=== PATIENT | female | born 1950 | race Two or more races ===

== ENCOUNTER 2019-02-13 15:41 | Emergency (ER) | payer OTHER ==
[~2019-02-13] VITALS: Ht 172.7 cm; Wt 81.2 kg
[~2019-02-13 15:41] MED LIST: AMOX1TAB12 PO; AVALIDE 300-251 TAB PO; DOXAZOSIN 8 MG PO; HumaLOG 100 UNIT/1 ML (3ML) SUBCUTANEO; INTESTINEX1 CA1 PO; LANTUS100 U/ML SQ; LOSARTAN-HCTZ1 EAC1; Lantus 1000 U/10 ML SUBCUTANEO; LoPRESSOR 100MG TAB PO; METOPROLOL SUC100 MG; NOVOLIN N100 U/ML SQ; NOVOLOG100 UNIT/1; PLAVIX 75MG PO; PLAVIX75 MG PO; PLETAL50 MG; PROTONIX40 MG PO; Pletal PO; ZOCOR5 MG; ZoCOR 40MG TABLET PO; [UNRECOGNIZED DRUG - OTHER] PO
[2019-02-13] MEDS ORDERED: NORVASC5 MG PO (16:14)
[2019-02-14] MEDS ORDERED: ULTRACET PO (02:35)
== END 2019-02-14 03:12 | disposition home or self-care (01) ==
LOC: ER 15:41
DX: R10.32 Left lower quadrant pain (principal)

== ENCOUNTER 2020-08-13 14:21 | Emergency (ER) | payer OTHER ==
[~2020-08-13] VITALS: Ht 172.7 cm; Wt 92.1 kg
[~2020-08-13 14:21] MED LIST changes: +NORVASC5 MG PO; +ULTRACET PO
== END 2020-08-13 20:24 | disposition home or self-care (01) ==
LOC: ER 14:21
DX: R55 Syncope and collapse (principal); Z20.828 Contact with and (suspected) exposure to other viral communicable diseases

== ENCOUNTER 2021-01-09 20:05 | Inpatient (IN) | payer OTHER ==
[~2021-01-09] VITALS: Ht 167.6 cm; Wt 86.2 kg
[2021-01-11] MEDS ORDERED: DOXAZOSIN MESYLA2 MG (07:58)
[2021-01-11] MEDS ORDERED: REFRESH OPTIVE1 EAC2 (07:58)
[2021-01-11] MEDS ORDERED: FENOFIBRATE160 MG (07:58)
[2021-01-11] MEDS ORDERED: GABAPENTIN300 M2 (07:58)
[2021-01-11] MEDS ORDERED: REFRESH OPTIVE10 M1 (07:58)
[2021-01-11] MEDS ORDERED: IRBESARTAN-HCT1 EAC1 (07:59)
[2021-01-11] MEDS ORDERED: JANUVIA50 MG (07:59)
[2021-01-11] MEDS ORDERED: METOPROLOL SUCC50 MG (07:59)
[2021-01-11] MEDS ORDERED: ROSUVASTATIN CA40 MG (07:59)
== END 2021-01-29 20:54 | DRG 872 ==
LOC: ER 20:05 → ICU-2 01-10 11:15 → ICU 01-11 21:23 → SURH 01-13 21:56
PROVIDERS: ADMIT Specialist; ATTEND Specialist
PROC: 02HV33Z Insertion of Infusion Device into Superior Vena Cava, Percutaneous Approach (ICD-10-PCS; 2021-01-13)
PROC: 4A12X4Z Monitoring of Cardiac Electrical Activity, External Approach (ICD-10-PCS; 2021-01-13)
PROC: 30233N1 Transfusion of Nonautologous Red Blood Cells into Peripheral Vein, Percutaneous Approach (ICD-10-PCS; principal; 2021-01-20)
DX: A41.9 Sepsis, unspecified organism (principal); N39.0 Urinary tract infection, site not specified; I67.4 Hypertensive encephalopathy; I69.354 Hemiplegia and hemiparesis following cerebral infarction affecting left non-dominant side; M86.8X6 Other osteomyelitis, lower leg; I10 Essential (primary) hypertension; E86.0 Dehydration; Z79.01 Long term (current) use of anticoagulants; E11.65 Type 2 diabetes mellitus with hyperglycemia; E11.40 Type 2 diabetes mellitus with diabetic neuropathy, unspecified; Z20.822 Contact with and (suspected) exposure to COVID-19; E11.621 Type 2 diabetes mellitus with foot ulcer; L97.529 Non-pressure chronic ulcer of other part of left foot with unspecified severity; K59.00 Constipation, unspecified; L89.152 Pressure ulcer of sacral region, stage 2; I80.8 Phlebitis and thrombophlebitis of other sites; I16.0 Hypertensive urgency; D50.9 Iron deficiency anemia, unspecified; E11.69 Type 2 diabetes mellitus with other specified complication
CPT/HCPCS: 70544

== ENCOUNTER 2021-08-19 16:00 | Emergency (ER) | payer OTHER ==
[~2021-08-19] VITALS: Ht 165.1 cm; Wt 81.6 kg
[~2021-08-19 16:00] MED LIST changes: +DOXAZOSIN MESYLA2 MG; +FENOFIBRATE160 MG; +GABAPENTIN300 M2; +IRBESARTAN-HCT1 EAC1; +JANUVIA50 MG; +METOPROLOL SUCC50 MG; +REFRESH OPTIVE1 EAC2; +REFRESH OPTIVE10 M1; +ROSUVASTATIN CA40 MG
== END 2021-08-20 03:09 | disposition home or self-care (01) ==
LOC: ER 16:00
DX: R05.9 Cough, unspecified (principal); E11.65 Type 2 diabetes mellitus with hyperglycemia; N39.0 Urinary tract infection, site not specified; B96.1 Klebsiella pneumoniae [K. pneumoniae] as the cause of diseases classified elsewhere; Z03.818 Encounter for observation for suspected exposure to other biological agents ruled out; Z79.4 Long term (current) use of insulin

== ENCOUNTER 2023-03-28 12:46 | Emergency (ER) | payer OTHER ==
[~2023-03-28] VITALS: Ht 167.6 cm; Wt 90.7 kg
== END 2023-03-29 02:19 | disposition home or self-care (01) ==
LOC: ER 12:46
DX: R55 Syncope and collapse (principal); E11.9 Type 2 diabetes mellitus without complications; Z79.4 Long term (current) use of insulin; I10 Essential (primary) hypertension; Z20.822 Contact with and (suspected) exposure to COVID-19

== ENCOUNTER 2024-02-24 02:53 | Inpatient (IN) | payer OTHER ==
[~2024-02-24] VITALS: Ht 172.7 cm; Wt 83.9 kg
[~2024-02-24 02:53] MED LIST changes: +ATORVASTATIN CA10 MG; +ISOSORBIDE MONO60 MG; +LISINOPRIL10 MG; +PLAVIX75 MG
--- NOTE | 2024-02-24 03:12 | NUR ---
SE RECIBE PTE ALERTA Y ORIENTADA X3 EN AMBULANCIA Y EN COMPANIA DE FAMILIAR QUIEN REFIERE TRAER A PTE POR PRESION Y AZUCAR BAJA. AL MOMENTO DE TRIAGE SE MIDEN SV Y AZUCAR DE PTE RESULTA EN 58 MG/DL. SE NOTIFICA A MD DE TURNO Y SE UBICA PTE. PTE SE OBSERVA CON PICCLINE EN BRAZO DERECHO.
[2024-02-24] MEDS ORDERED: RINGERS SOLUTION,LACTATED 1,000 ML IV STA (03:22)
[2024-02-24] MEDS ORDERED: DEXTROSE 50 % IN WATER 0.5 G/ML VIAL IV STA (03:30)
--- NOTE | 2024-02-24 03:47 | NUR ---
SE ORIENTA PTE SOBRE TX MEDICL EL CUAL REFIERE ENTENDER.SE LE EXTRAEN MUESTRAS BAJO MEDIDAS ASEPTICAS,SE CANALIZA Y SE ADMINISTRAN MEDICAMENTOS [place] ORDEN MEDICA.
[2024-02-24 04:38] LABS: MEAN CELL VOLUME 74.8 fL (80.00-100.00); MEAN CORPUSCULAR HGB CONC 34.1 g/dl (32.0-36.0); PLATELET COUNT 137 K/uL (150-450); RED BLOOD COUNT 2.95 M/uL (4.00-6.00); RED CELL DISTRIBUTION WIDTH 15.8 % (11.5-14.5)
[2024-02-24 04:39] LABS: HEMATOCRIT 22.1 % (36.0-45.00); MEAN CORPUSCULAR HEMOGLOBIN 25.4 pg (27.00-32.0)
[2024-02-24 04:40] LABS: HEMOGLOBIN 7.5 g/dL (12.0-15.00)
[2024-02-24 04:49] LABS: ERYTHROCYTE SEDIMENTATION RATE 59 mm/hr
[2024-02-24 04:53] LABS: URINE APPEARANCE Turbid; URINE BILIRRUBIN Negative (NEGATIVE); URINE BLOOD Small; URINE COLOR Dark Yellow; URINE KETONE Negative (NEGATIVE); URINE LEUKOCYTE Moderate; URINE NITRATE Negative; URINE UROBILINOGEN 0.2 E.U./dl
[2024-02-24 04:56] LABS: URINE RBC 189.7 uL (0.0-20.8); URINE WBC 207.4 uL (0.0-23.2)
[2024-02-24 05:00] LABS: ALBUMIN 1.5 gm/dL (3.4-5.0); BILIRUBIN TOTAL 0.66 mg/dL (0.3-1.2); GLOBULINA 3.4 G/DL (2.4-3.5); TOTAL PROTEIN 4.9 gm/dL (6.4-8.2)
[2024-02-24 05:04] LABS: GFR 4.09
[2024-02-24 05:05] LABS: CREATININE SERUM 9.37 mg/dL (0.55-1.02)
[2024-02-24 05:06] LABS: POTASSIUM 2.69 mEq/L (3.5-5.1)
[2024-02-24 05:09] LABS: URINE CAST 1.22 uL (0.0-1.40); URINE CRYSTALS MODERATE /HPF; URINE EPITHELIAL CELLS > 201.7 uL (0.0-38.8); URINE GLUCOSE 100 MG/DL (NEGATIVE); URINE PROTEIN 100 (NEGATIVE); URINE YEAST FEW /hpf
--- NOTE | 2024-02-24 07:20 | NUR ---
SE RECIBE PTE ALERTA Y ORIENTADA X3 EN NENA BAJA CON BARANDAS ELEVADAS POR SEGURIDAD. SE OBSERVA PTE ASISTIDA CON CANULA NASAL A 2LT/MIN. PICCLINE EN BRAZO RT. PATENTE. AREA DE VENOPUNCION LYDIA DE EDEMA Y ERITEMA. RECIBIENDO R/L 1000ML @ 60ML/HR. SE MANTIENE BAJO OBSERVACION POR CAMBIOS SIGNIFICATIVOS.
[2024-02-24 10:10] LABS: ABG PH 7.389 (7.35-7.45); ABG pCO2 33.9 mmHg (35-45)
[2024-02-24 10:11] LABS: ABG PO2 124.5 mmHg (80-100); SaO2 98.7 %; Tco2 21.1 mmol/l; allen test SATISFACTORY; o2 32 %; puncture site RADIAL RIGHT
[2024-02-24] MEDS ORDERED: SOD FERRIC GLUC COMPLX/SUCROSE 62.5 MG in 0.9 % SODIUM CHLORIDE 50 ML IV SCH (12:27)
[2024-02-24] MEDS ORDERED: LACTOBACILLUS ACIDOPHILUS 1 CAP CAP PO SCH (12:28)
[2024-02-24] MEDS ORDERED: FUROsemide 20 MG/2 ML VIAL IV SCH (12:30)
[2024-02-24] MEDS ORDERED: hydrALAZINE HCL 20 MG VIAL IV PRN (12:30)
[2024-02-24] MEDS ORDERED: DEXTROSE 50 % IN WATER 0.5 G/ML DISP.SYRIN IV PRN (12:30)
[2024-02-24] MEDS ORDERED: INSULIN LISPRO 1,000 UNIT/10 ML UNITS SUBCUTANEO PRN (12:30)
[2024-02-24] MEDS ORDERED: POTASSIUM CHLORIDE IN WATER 100 ML IV ONE (12:45)
[2024-02-24] MEDS ORDERED: PIPERACILLIN/TAZOBACTAM SODIUM 2.25 GM in 0.9 % SODIUM CHLORIDE 50 ML IV SCH (13:00)
[2024-02-24] MEDS ORDERED: GABAPENTIN 300 MG CAPSULE PO SCH (17:00)
[2024-02-24] MEDS ORDERED: FAMOtidine 20 MG TABLET PO SCH (21:00)
[2024-02-25] MEDS ORDERED: FOLIC ACID 1 MG TABLET PO SCH (09:00)
[2024-02-25] MEDS ORDERED: Cyanocobalamin/Mecobalamin 1 TAB.SL SL SCH (09:00)
[2024-02-25] MEDS ORDERED: ENOXAPARIN SODIUM 30 MG/0.3 ML SYRINGE SUBCUTANEO SCH (09:00)
[2024-02-25] MEDS ORDERED: DEXTROSE 50 % IN WATER 0.5 G/ML DISP.SYRIN IV PRN (16:15)
[2024-02-25 23:30] LABS: MEAN CELL VOLUME 78.6 fL (80.00-100.00); MEAN CORPUSCULAR HGB CONC 33.9 g/dl (32.0-36.0); PLATELET COUNT 137 K/uL (150-450); RED BLOOD COUNT 3.69 M/uL (4.00-6.00); RED CELL DISTRIBUTION WIDTH 18.3 % (11.5-14.5)
[2024-02-25 23:59] LABS: HEMOGLOBIN 9.8 g/dL (12.0-15.00); MEAN CORPUSCULAR HEMOGLOBIN 26.5 pg (27.00-32.0)
[2024-02-26 00:02] LABS: ERYTHROCYTE SEDIMENTATION RATE 70 mm/hr
[2024-02-26 00:15] LABS: ALBUMIN 1.7 gm/dL (3.4-5.0); BILIRUBIN TOTAL 0.82 mg/dL (0.3-1.2); GLOBULINA 3.2 G/DL (2.4-3.5); POTASSIUM 3.56 mEq/L (3.5-5.1); TOTAL PROTEIN 4.9 gm/dL (6.4-8.2)
[2024-02-26 00:17] LABS: GFR 3.66
[2024-02-26 00:18] LABS: C-REACTIVE PROTEIN 7.33 MG/DL (0.00-0.29)
[2024-02-26 00:21] LABS: CREATININE SERUM 10.3 mg/dL (0.55-1.02)
[2024-02-26 06:20] LABS: HEMATOCRIT 26.1 % (36.0-45.00); MEAN CELL VOLUME 80.4 fL (80.00-100.00); MEAN CORPUSCULAR HGB CONC 34.1 g/dl (32.0-36.0); RED BLOOD COUNT 3.25 M/uL (4.00-6.00); RED CELL DISTRIBUTION WIDTH 18.4 % (11.5-14.5)
[2024-02-26 06:21] LABS: HEMOGLOBIN 8.9 g/dL (12.0-15.00); MEAN CORPUSCULAR HEMOGLOBIN 27.3 pg (27.00-32.0); PLATELET COUNT 113 K/uL (150-450)
[2024-02-26 06:53] LABS: ALBUMIN 1.5 gm/dL (3.4-5.0); BILIRUBIN TOTAL 0.78 mg/dL (0.3-1.2); GLOBULINA 2.8 G/DL (2.4-3.5); PHOSPHOROUS 5.5 mg/dL (2.5-4.9); POTASSIUM 3.08 mEq/L (3.5-5.1); TOTAL PROTEIN 4.3 gm/dL (6.4-8.2)
[2024-02-26 07:23] LABS: CALCIUM 6.4 mg/dL (8.5-10.1); GFR 3.91; MAGNESIUM 1.4 mg/dL (1.8-2.4)
[2024-02-26 07:24] LABS: CREATININE SERUM 9.74 mg/dL (0.55-1.02)
[2024-02-26] MEDS ORDERED: SODIUM CHLORIDE 0.45 % 1,000 ML IV SCH (20:00)
[2024-02-27] MEDS ORDERED: FUROsemide 40 MG/4 ML VIAL IV SCH (17:00)
[2024-02-28 08:04] LABS: ALBUMIN 1.6 gm/dL (3.4-5.0); BILIRUBIN TOTAL 0.71 mg/dL (0.3-1.2); CALCIUM 6.7 mg/dL (8.5-10.1); GFR 3.29; GLOBULINA 3.1 G/DL (2.4-3.5); POTASSIUM 3.26 mEq/L (3.5-5.1); TOTAL PROTEIN 4.7 gm/dL (6.4-8.2)
[2024-02-28 08:09] LABS: CREATININE SERUM 11.3 mg/dL (0.55-1.02)
[2024-02-28] MEDS ORDERED: POTASSIUM CHLORIDE 20MEQ/100ML H2O PB IV STA (13:32)
[2024-02-28] MEDS ORDERED: HEPARIN SODIUM,PORCINE 500 UNITS/5 ML VIAL IV ONE (16:15)
[2024-02-29 14:09] LABS: ALBUMIN 1.2 gm/dL (3.4-5.0); BILIRUBIN TOTAL 0.47 mg/dL (0.3-1.2); GLOBULINA 2.4 G/DL (2.4-3.5); TOTAL PROTEIN 3.6 gm/dL (6.4-8.2)
[2024-02-29 14:18] LABS: GFR 4.45
[2024-02-29 14:21] LABS: CALCIUM 5.1 mg/dL (8.5-10.1); CREATININE SERUM 8.71 mg/dL (0.55-1.02); POTASSIUM 2.72 mEq/L (3.5-5.1)
[2024-02-29] MEDS ORDERED: HEPARIN SODIUM,PORCINE 5,000 UNITS/ML VIAL IV ONE (14:45)
[2024-02-29] MEDS ORDERED: POTASSIUM CHLORIDE 20MEQ/100ML H2O PB IV SCH (17:00)
[2024-02-29] MEDS ORDERED: CALCIUM GLUCONATE 100 MG/ML VIAL IV SCH (18:00)
[2024-03-01 08:13] LABS: ALBUMIN 1.5 gm/dL (3.4-5.0); BILIRUBIN TOTAL 0.83 mg/dL (0.3-1.2); CALCIUM 7.4 mg/dL (8.5-10.1); GFR 5.14; GLOBULINA 3.2 G/DL (2.4-3.5); POTASSIUM 3.99 mEq/L (3.5-5.1); TOTAL PROTEIN 4.7 gm/dL (6.4-8.2)
[2024-03-01 08:17] LABS: CREATININE SERUM 7.68 mg/dL (0.55-1.02)
[2024-03-01] MEDS ORDERED: PIPERACILLIN/TAZOBACTAM SODIUM 2.25 GM VIAL IV SCH (10:30)
[2024-03-01 12:49] LABS: HEMATOCRIT 29.3 % (36.0-45.00); MEAN CORPUSCULAR HGB CONC 33.1 g/dl (32.0-36.0); RED BLOOD COUNT 3.62 M/uL (4.00-6.00); RED CELL DISTRIBUTION WIDTH 19.3 % (11.5-14.5)
[2024-03-01 12:52] LABS: HEMOGLOBIN 9.7 g/dL (12.0-15.00); MEAN CORPUSCULAR HEMOGLOBIN 26.7 pg (27.00-32.0); PLATELET COUNT 78 K/uL (150-450)
[2024-03-01] MEDS ORDERED: PIPERACILLIN/TAZOBACTAM SODIUM 2.25 GM in 0.9 % SODIUM CHLORIDE 50 ML IV SCH (13:00)
[2024-03-01] MEDS ORDERED: FLUCONAZOLE IN NACL,ISO-OSM 200 MG/100 ML PIGGYBAG IV STA (16:36)
[2024-03-01] MEDS ORDERED: MEROPENEM 500 MG/VIAL VIAL IV SCH (17:00)
[2024-03-01] MEDS ORDERED: HEPARIN SODIUM,PORCINE 5,000 UNITS/ML VIAL IV NR (17:45)
[2024-03-01] MEDS ORDERED: ONDANSETRON HCL 2 MG/ML VIAL IV SCH (22:25)
[2024-03-02] MEDS ORDERED: PANTOPRAZOLE SODIUM 40 MG TABLET.DR PO SCH (11:15)
[2024-03-02] MEDS ORDERED: FUROsemide 40 MG/4 ML VIAL IV SCH (11:15)
[2024-03-02 21:57] LABS: HEMATOCRIT 34.2 % (36.0-45.00); HEMOGLOBIN 11.6 g/dL (12.0-15.00); MEAN CORPUSCULAR HEMOGLOBIN 27.8 pg (27.00-32.0); MEAN CORPUSCULAR HGB CONC 33.9 g/dl (32.0-36.0); PLATELET COUNT 53 K/uL (150-450); RED BLOOD COUNT 4.17 M/uL (4.00-6.00); RED CELL DISTRIBUTION WIDTH 19.1 % (11.5-14.5)
[2024-03-03 08:04] LABS: HEMATOCRIT 30.1 % (36.0-45.00); HEMOGLOBIN 10.4 g/dL (12.0-15.00); MEAN CELL VOLUME 82.1 fL (80.00-100.00); MEAN CORPUSCULAR HEMOGLOBIN 28.4 pg (27.00-32.0); MEAN CORPUSCULAR HGB CONC 34.6 g/dl (32.0-36.0); RED BLOOD COUNT 3.67 M/uL (4.00-6.00); RED CELL DISTRIBUTION WIDTH 19.2 % (11.5-14.5)
[2024-03-03 08:34] LABS: PLATELET COUNT 43 K/uL (150-450)
[2024-03-03] MEDS ORDERED: SOD FERRIC GLUC COMPLX/SUCROSE 62.5 MG in 0.9 % SODIUM CHLORIDE 50 ML IV SCH (09:45)
[2024-03-03] MEDS ORDERED: PYRIDOXINE HCL 100 MG TABLET PO SCH (09:45)
[2024-03-03] MEDS ORDERED: FUROsemide 40 MG/4 ML VIAL IV STA (10:02)
[2024-03-03 10:26] LABS: ABG PH 7.254 (7.35-7.45); ABG PO2 94.5 mmHg (80-100); ABG pCO2 42.4 mmHg (35-45); BASE EXCESS -8.5 mmol/l; BICARBONATE 18.4 mmol/l (23-25); SaO2 95.4 %; Tco2 19.7 mmol/l; allen test SATISFACTORY; o2 32 %; puncture site RADIAL RIGHT
[2024-03-03 10:27] LABS: MANUAL PLATELET COUNT 102
[2024-03-03 11:09] LABS: ALBUMIN 1.9 gm/dL (3.4-5.0); BILIRUBIN TOTAL 0.62 mg/dL (0.3-1.2); CALCIUM 7.8 mg/dL (8.5-10.1); GFR 6.72; GLOBULINA 3.4 G/DL (2.4-3.5); POTASSIUM 3.5 mEq/L (3.5-5.1); TOTAL PROTEIN 5.3 gm/dL (6.4-8.2)
[2024-03-03 12:02] LABS: CREATININE SERUM 6.09 mg/dL (0.55-1.02)
[2024-03-03] MEDS ORDERED: FLUCONAZOLE IN NACL,ISO-OSM 100 MG/50 ML PIGGYBAG IV SCH (14:00)
[2024-03-03] MEDS ORDERED: FLUCONAZOLE IN NACL,ISO-OSM 2 MG/ML ML IV SCH (17:00)
[2024-03-03] MEDS ORDERED: CITRIC ACID/SODIUM CITRATE 30 ML BLIST.PACK PO SCH (18:50)
[2024-03-04 06:38] LABS: HEMATOCRIT 31.1 % (36.0-45.00); HEMOGLOBIN 10.5 g/dL (12.0-15.00); MEAN CORPUSCULAR HEMOGLOBIN 27.7 pg (27.00-32.0); MEAN CORPUSCULAR HGB CONC 33.7 g/dl (32.0-36.0); RED BLOOD COUNT 3.79 M/uL (4.00-6.00); RED CELL DISTRIBUTION WIDTH 18.9 % (11.5-14.5)
[2024-03-04 06:39] LABS: PLATELET COUNT 43 K/uL (150-450)
[2024-03-04 06:46] LABS: ERYTHROCYTE SEDIMENTATION RATE 52 mm/hr
[2024-03-04 06:59] LABS: CALCIUM 7.6 mg/dL (8.5-10.1); POTASSIUM 3.45 mEq/L (3.5-5.1)
[2024-03-04 07:30] LABS: C-REACTIVE PROTEIN 5.23 MG/DL (0.00-0.29); GFR 6.12
[2024-03-04 07:31] LABS: CREATININE SERUM 6.6 mg/dL (0.55-1.02)
[2024-03-04] MEDS ORDERED: FLUCONAZOLE 100 MG TABLET PO SCH (09:00)
[2024-03-04 11:06] LABS: ABG PH 7.235 (7.35-7.45); ABG PO2 63.8 mmHg (80-100); BASE EXCESS -9.6 mmol/l; BICARBONATE 17.4 mmol/l (23-25); SaO2 86.2 %; Tco2 18.7 mmol/l
[2024-03-04 11:07] LABS: o2 21 %
[2024-03-04 11:09] LABS: allen test SATISFACTORY; puncture site RADIAL RIGHT
[2024-03-04] MEDS ORDERED: HEPARIN SODIUM,PORCINE 5,000 UNITS/ML VIAL IV ONE (14:45)
[2024-03-05] MEDS ORDERED: AMPHOTERICIN B CENTRAL SCH (17:00)
[2024-03-05] MEDS ORDERED: ACETAMINOPHEN 500 MG GEL..CAP PO SCH (17:00)
[2024-03-05] MEDS ORDERED: DIPHENHYDRAMINE HCL 25 MG CAPSULE PO SCH (17:00)
[2024-03-06 13:08] LABS: HEMATOCRIT 27.7 % (36.0-45.00); HEMOGLOBIN 9.3 g/dL (12.0-15.00); MEAN CELL VOLUME 81.7 fL (80.00-100.00); MEAN CORPUSCULAR HEMOGLOBIN 27.4 pg (27.00-32.0); MEAN CORPUSCULAR HGB CONC 33.6 g/dl (32.0-36.0); RED BLOOD COUNT 3.39 M/uL (4.00-6.00); RED CELL DISTRIBUTION WIDTH 19.9 % (11.5-14.5)
[2024-03-06 13:11] LABS: PLATELET COUNT 65 K/uL (150-450)
[2024-03-06] MEDS ORDERED: HEPARIN SODIUM,PORCINE 5,000 UNITS/ML VIAL IV NR (16:15)
[2024-03-06] MEDS ORDERED: DEXTROSE 5 % IN WATER 1,000 ML IV SCH (19:30)
[2024-03-06] MEDS ORDERED: IPRATROPIUM BROMIDE 0.5 MG/2.5 ML AMPUL.NEB IH STA (22:09)
[2024-03-07] MEDS ORDERED: IPRATROPIUM BROMIDE 0.5 MG/2.5 ML AMPUL.NEB IH SCH
== END 2024-03-07 22:07 | disposition expired | DRG 871 ==
LOC: ER 02:53 → MEDI 12:51
PROVIDERS: Internal Medicine; Internal Medicine Geriatric Medicine; Internal Medicine Infectious Disease; ADMIT Internal Medicine; ATTEND Internal Medicine
PROC: BW40ZZZ Ultrasonography of Abdomen (ICD-10-PCS; principal; 2024-02-24)
PROC: 4A12X4Z Monitoring of Cardiac Electrical Activity, External Approach (ICD-10-PCS; 2024-02-24)
PROC: 30233N1 Transfusion of Nonautologous Red Blood Cells into Peripheral Vein, Percutaneous Approach (ICD-10-PCS; 2024-02-24)
PROC: 05HM33Z Insertion of Infusion Device into Right Internal Jugular Vein, Percutaneous Approach (ICD-10-PCS; 2024-02-28)
PROC: BW28ZZZ Computerized Tomography (CT Scan) of Head (ICD-10-PCS; 2024-03-01)
PROC: 5A1D70Z Performance of Urinary Filtration, Intermittent, Less than 6 Hours Per Day (ICD-10-PCS; 2024-03-04)
PROC: B54DZZZ Ultrasonography of Bilateral Lower Extremity Veins (ICD-10-PCS; 2024-03-05)
PROC: 3E0F7GC Introduction of Other Therapeutic Substance into Respiratory Tract, Via Natural or Artificial Opening (ICD-10-PCS; 2024-03-06)
PROC: 5A1D70Z Performance of Urinary Filtration, Intermittent, Less than 6 Hours Per Day (ICD-10-PCS; 2024-03-06)
PROC: 5A1D70Z Performance of Urinary Filtration, Intermittent, Less than 6 Hours Per Day (ICD-10-PCS; 2024-03-06)
DX: A41.9 Sepsis, unspecified organism (principal); J18.9 Pneumonia, unspecified organism; N18.6 End stage renal disease; B49 Unspecified mycosis; N39.0 Urinary tract infection, site not specified; I12.0 Hypertensive chronic kidney disease with stage 5 chronic kidney disease or end stage renal disease; N17.8 Other acute kidney failure; M86.8X6 Other osteomyelitis, lower leg; J90 Pleural effusion, not elsewhere classified; L97.518 Non-pressure chronic ulcer of other part of right foot with other specified severity; B96.89 Other specified bacterial agents as the cause of diseases classified elsewhere; E11.22 Type 2 diabetes mellitus with diabetic chronic kidney disease; Z99.2 Dependence on renal dialysis; Z79.4 Long term (current) use of insulin; Z74.01 Bed confinement status; E86.0 Dehydration; E11.40 Type 2 diabetes mellitus with diabetic neuropathy, unspecified; D72.828 Other elevated white blood cell count; D69.6 Thrombocytopenia, unspecified; I87.2 Venous insufficiency (chronic) (peripheral); D63.8 Anemia in other chronic diseases classified elsewhere; E78.49 Other hyperlipidemia; Z66 Do not resuscitate